=== PATIENT | male | born 1985 | race Asian ===

== ENCOUNTER 2017-02-26 08:35 | Emergency (ER) | payer SELFPAY ==
[~2017-02-26] VITALS: Ht 177.8 cm; Wt 72.6 kg
[2017-02-26 08:49] VITALS: BP 141/84
[2017-02-26] MEDS ORDERED: AMOX875T PO (09:06)
[2017-02-26] MEDS ORDERED: IBUP-1060 PO (09:06)
[2017-02-26] MEDS ORDERED: LORA1TAB47 PO (09:06)
--- NOTE | 2017-02-26 09:06 | PHYS DOC ---
Past Medical History Past Medical History: No Pertinent History Past Surgical History: No Surgical History Alcohol Use: Occasionally Drug Use: None Adult General Chief Complaint Chief Complaint: EARACHE/EAR PAIN HPI HPI Patient is a 31 year old male who presents with mild right ear pain that began 2 weeks ago. Patient states he thought he had seasonal allergies because he had teary, and itchy eyes. The patient has not tried any medications. Patient denies any fever. Denies any coughing. Review of Systems Review of Systems Constitutional: Denies fever or chills [] Eyes: Denies change in visual acuity, redness, or eye pain [] HENT: right ear pain Respiratory: Denies cough or shortness of breath [] Cardiovascular: No additional information not addressed in HPI [] GI: Denies abdominal pain, nausea, vomiting, bloody stools or diarrhea [] : Denies dysuria or hematuria [] Musculoskeletal: Denies back pain or joint pain [] Integument: Denies rash or skin lesions [] Neurologic: Denies headache, focal weakness or sensory changes [] Endocrine: Denies polyuria or polydipsia [] Allergies Allergies Allergies Coded Allergies Type Severity Reaction Last Updated Verified No Known Drug Allergies 02/26/17 No Physical Exam Physical Exam Constitutional: Well developed, well nourished, no acute distress, non-toxic appearance. [] HENT: Normocephalic, atraumatic, bilateral external ears normal, oropharynx moist, no oral exudates, nose normal. [] Right TM is moderately injected with effusion, left TM is mildly injected Eyes: PERRLA, EOMI, conjunctiva normal, no discharge. [] Neck: Normal range of motion, no tenderness, supple, no stridor. [] Cardiovascular:Heart rate regular rhythm, no murmur [] Lungs & Thorax: Bilateral breath sounds clear to auscultation [] Abdomen: Bowel sounds normal, soft, no tenderness, no masses, no pulsatile masses. [] Skin: Warm, dry, no erythema, no rash. [] Back: No tenderness, no CVA tenderness. [] Extremities: No tenderness, no cyanosis, no clubbing, ROM intact, no edema. [] Neurologic: Alert and oriented X 3, normal motor function, normal sensory function, no focal deficits noted. [] Psychologic: Affect normal, judgement normal, mood normal. [] Current Patient Data Vital Signs Vital Signs Date Time Temp Pulse Resp B/P Pulse Ox O2 Delivery O2 Flow Rate FiO2 02/26/17 08:49 98.3 94 18 98 Room Air 98.3 EKG EKG [] Radiology/Procedures Radiology/Procedures [] Course & Med Decision Making Course & Med Decision Making Pertinent Labs and Imaging studies reviewed. (See chart for details) Patient has bilateral otitis media with effusion. He also has seasonal allergies. Discharged with amoxicillin for 10 days. Discharged with Claritin-D. Follow-up with primary care doctor in 1-2 weeks. Tylenol /Motrin for pain or fever. Dragon Disclaimer Dragon Disclaimer This electronic medical record was generated, in whole or in part, using a voice recognition dictation system. Departure Departure Impression: Primary Impression: Otitis media with effusion Additional Impression: Seasonal allergies Disposition: 01 HOME, SELF-CARE Condition: STABLE Patient Instructions: Allergies, Generic, Otitis Media with Effusion Additional Instructions: You were seen for ear infection and seasonal allergies. Please take the antibiotics prescribed as ordered. Make sure you finish them. Take a decongestant like Claritin-D as well. Take Tylenol/ Motrin for pain or fever. Scripts Ibuprofen 800 Mg Tablet1 Mg PO PRN Q6HRS PRN INFLAMMATION #30 TAB Prov:CASSY MELLO APRN 02/26/17 Loratadine/Pseudoephedrine (Claritin-D 12 Hour Tablet)1 Each Tab.er.12h1 Tab PO BID #20 TAB Prov:CASSY MELLO APRN 02/26/17 Amoxicillin 875 Mg Tablet1 Tab PO BID #20 TAB Prov:CASSY MELLO APRN 02/26/17 Problem Qualifiers Primary Impression: Otitis media with effusion Laterality: bilateral Qualified Code: H65.93 - Unspecified nonsuppurative otitis media, bilateral Additional Impression: Seasonal allergies Allergic rhinitis trigger: unspecified Qualified Code: J30.2 - Other seasonal allergic rhinitis CASSY MELLO APRN February 26, 2017 09:06
== END 2017-02-26 09:55 | disposition home or self-care (01) ==
LOC: ER 08:35
DX: H65.93 Unspecified nonsuppurative otitis media, bilateral (principal); J30.2 Other seasonal allergic rhinitis
CPT/HCPCS: 99283

== ENCOUNTER 2019-06-19 12:18 | Emergency (ER) | payer SELFPAY ==
[~2019-06-19] VITALS: Ht 175.3 cm; Wt 72.6 kg
[~2019-06-19 12:18] MED LIST: AMOX875T PO; IBUP-1060 PO; LORA1TAB47 PO
[2019-06-19 12:57] VITALS: BP 166/85
[2019-06-19] MEDS ORDERED: PRED20TA PO (13:40)
[2019-06-19] MEDS ORDERED: CEPH-264 PO (13:40)
[2019-06-19] MEDS ORDERED: MUPI22OI2 TP (13:40)
--- NOTE | 2019-06-19 13:41 | PHYS DOC ---
Past Medical History Past Medical History: No Pertinent History (CAMELIA NAGEL APRN) Past Surgical History: No Surgical History (CAMELIA NAGEL APRN) Alcohol Use: Occasionally Drug Use: None (CAMELIA NAGEL APRN) Adult General Chief Complaint Chief Complaint: SKIN RASH/ABSCESS HPI HPI Patient is a 33 year old male who presents with complaints of a rash to his left chest, abdomen, and bilateral groins for the last 2 months. He denies any drainage or bleeding from the sites. He reports severe itching. He denies any new medications, perfumes, detergents, foods, or medications. Pt states his friend had a similar rash that he was prescribed Claritin and 12 days of prednisone for and his friend's symptoms went away. Pt denies any pain at this time. ROS Pt denies any fever, cough, shortness of breath, sore throat, ear pain, nausea, vomiting, or diarrhea. He denies any hx of diabetes. Pt states that his rash beg an on his left chest and has since spread to other areas. All other ROS is neg unless otherwise noted in HPI. (CAMELIA NAGEL APRN) Review of Systems Review of Systems See Above (CAMELIA NAGEL APRN) Allergies Allergies Allergies Coded Allergies Type Severity Reaction Last Updated Verified No Known Drug Allergies 02/26/17 No (CELIA TAYLOR MD) Physical Exam Physical Exam See Above Constitutional: Well developed, well nourished, no acute distress, non-toxic appearance. [] HENT: Normocephalic, atraumatic, bilateral external ears normal, oropharynx moist, no oral exudates, nose normal. [] Eyes: PERRLA, EOMI, conjunctiva normal, no discharge. [] Neck: Normal range of motion, no tenderness, supple, no stridor. [] Cardiovascular: Heart rate regular rhythm Lungs & Thorax: Bilateral breath sounds clear to auscultation, no retractions [] Skin: Warm, dry, no warmth; scattered erythremic maculopapular patches some with honey colored crusting noted to left chest, abdomen, and bilateral groins consistent with impetigo vs contact dermatitis.[] Extremities: No tenderness, no cyanosis, no clubbing, ROM intact, no edema. [] Neurologic: Alert and oriented X 3, normal motor function, normal sensory function, no focal deficits noted. [] Psychologic: Affect normal, judgement normal, mood normal. [] (CAMELIA NAGEL APRN) Current Patient Data Vital Signs Vital Signs Date Time Temp Pulse Resp B/P (MAP) Pulse Ox O2 Delivery O2 Flow Rate FiO2 06/19/19 12:57 97.5 79 16 166/85 (112) 98 Room Air 97.5 (CELIA TAYLOR MD) Lab Values Laboratory Tests Test 06/19/19 13:40 Glucose (Fingerstick) 87 mg/dL (70-99) (CELIA TAYLOR MD) Lab Values Laboratory Tests Test 06/19/19 13:40 Glucose (Fingerstick) 87 mg/dL (70-99) (CAMELIA NAGEL APRN) EKG EKG [] (CAMELIA NAGEL APRN) Radiology/Procedures Radiology/Procedures [] (CAMELIA NAGEL APRN) Course & Med Decision Making Course & Med Decision Making Pertinent Labs and Imaging studies reviewed. (See chart for details) Dx: impetigo, contact dermatitis Pt was also evaluated by Dr. Taylor. Prescriptions written for prednisone taper, mupirocin ointment, and keflex. Pt instructed to fill the prescriptions and use as directed. Also take an over the counter antihistamine such as Claritin once daily. Keep your fingernails trimmed short and apply mupirocin ointment under your nails twice a day until the rash is gone. Follow up with Dr. Barone for re-evaluation, return to the ER if symptoms worsen. Patient verbalized an understanding of home care, medications, follow-up, and return to ED instructions and was in agreement with the plan of care. [] (CAMELIA NAGEL APRN) Course & Med Decision Making ER PHYSICIAN ATTENDING NOTE: I have personally seen and examined the patient, and agree with the history, physical exam, and plan, as documented by mid-level provider. (CELIA TAYLOR MD) Dragon Disclaimer Dragon Disclaimer This electronic medical record was generated, in whole or in part, using a voice recognition dictation system. (CAMELIA NAGEL APRN) Departure Departure Impression: Primary Impression: Impetigo bullosa Disposition: HOME, SELF-CARE Condition: STABLE Referrals: NO PCP (PCP) LUÍS BARONE MD Patient Instructions: Impetigo Additional Instructions: Fill the prescriptions and use as directed. Also take an over the counter antihistamine such as Claritin once daily. Keep your fingernails trimmed short and apply mupirocin ointment under your nails twice a day until the rash is gone. Follow up with Dr. Barone for re-evaluation, return to the ER if symptoms worsen. Scripts Prednisone (PREDNISONE) 20 Mg Tablet 1 TAB PO UD for 12 Days, #15 TAB 0 Refills Take 2 tabs by mouth days 1,2,3 take 1.5 tabs by mouth days 4,5,6 take 1 tab by mouth days 7,8,9 take 0.5 tab by mouth days 10,11,12 Prov: CAMELIA NAGEL APRN 06/19/19 Mupirocin (MUPIROCIN OINTMENT) 22 Gm Oint...g. 1 MARIA ESTHER TP TID for WOUND CARE for 7 Days, #30 GM Prov: CAMELIA NAGEL APRN 06/19/19 Cephalexin (KEFLEX) 500 Mg Capsule 1 CAP PO BID, #14 CAP 0 Refills Prov: CAMELIA NAGEL APRN 06/19/19 CAMELIA NAGEL APRN Jun 19, 2019 13:41 CELIA TAYLOR MD Jun 19, 2019 13:43
== END 2019-06-19 13:19 | disposition home or self-care (01) ==
LOC: ER 12:18
DX: L01.03 Bullous impetigo (principal)
CPT/HCPCS: 82962; 99283